=== PATIENT | female | born 1970 | race Caucasian/White ===

== ENCOUNTER 2024-09-18 13:39 | Outpatient (CLI) | payer OTHER, SELFPAY ==
--- NOTE | ~2024-09-18 | XR_ITS ---
HISTORY: M25.569 - Pain in unspecified knee COMPARISON: None TECHNIQUE: 2 views of the left knee were performed in the standing position FINDINGS: Near complete obliteration of the medial tibiofemoral joint space with osteophytic bridging and later al deviation of the proximal tibia. Calcific tendinosis identified along the medial and lateral margins of the joint space. Near complete obliteration of the patellofemoral joint space is also noted. Suprapatellar joint effusion is identified. The infrapatellar joint space is clear. IMPRESSION: Severe degenerative disease, as detailed above. No acute fracture. Reviewed, dictated and finalized at location A.
== END 2024-09-18 13:40 | disposition home or self-care (01) ==
LOC: GOSHIMG 13:40
PROVIDERS: PCP Nurse Practitioner; Visit Provider Nurse Practitioner
DX: M17.12 Unilateral primary osteoarthritis, left knee (principal)
CPT/HCPCS: 73560